=== PATIENT | female | born 1980 | race Caucasian/White ===

== ENCOUNTER 2020-04-21 19:05 | Emergency (ER) | payer BC, SELFPAY ==
[2020-04-21 19:24] VITALS: BP 141/84; PULSE 101; RESP 16; TEMP 36.6; O2SAT 97; BMI 37.2
--- NOTE | 2020-04-21 19:53 | HMH.EDUTC ---
[facility] [place] Disposition Clinical Impression: COVID-19 virus test result unknown Disposition: Home, Self-Care Condition on Discharge: Good Instructions: Preventing the Spread of Coronavirus Discharge Instructions Additional Instructions: self quarantine till test result are resulted Referrals: Arden Arnold [Primary Care Provider] - Time of Disposition: 19:58 Medical Decision Making - Yann Inquiry Pt receiving controlled substance: No Vital Signs: 04/21/20 19:24 Temperature 98 F Temperature Source Oral Pulse Rate [Radial] 101 H Respiratory Rate 16 Blood Pressure [Right Arm] 141/84 H Blood Pressure Mean [Right Arm] 103 Blood Pressure Source [Right Arm] Automatic Cuff Blood Pressure Position [Right Arm] Sitting 02 Sat by Pulse Oximetry 97 Oxygen Delivery Method Room Air Orders (Tests/Meds): ORDERS Category Date Time Status Coronavirus 19 Swab (OUTPT) Routine Lab 04/21/20 19:[address] [facility] [place] HPI - General Chief complaint: Urgent Treatment Center Stated complaint: Covid test Time Seen by Provider: 04/21/20 19:53 Mode of Arrival: Ambulatory Source of Information: Patient Limitations: No Limitations Description of Symptoms (Recalled from Triage Doc. by RN): States she was positive for COVID 3 weeks- daughter also positive on THU. HEENT Symptoms (Recalled from RN notes): No Resp Symptoms (Recalled from RN notes): Yes Skin Symptoms (Recalled from RN notes): No MS Symptoms (Recalled from RN notes): No Functional Status (Recalled from RN notes): wnl - History of Present Illness Provider Complaint: 39 yr old female present for covid testing. pt states she has had 2 positive test result and she has symptoms but they have improved. - Related Data Allergies Allergy/AdvReac Type Severity Reaction Status Date / Time CODEINE Allergy Mild I-RASH Uncoded 09/01/17 14:40 From PERCOCET Allergy Mild I-RASH Uncoded 09/01/17 14:40 From TORADOL Allergy Mild STOMACH Uncoded 09/01/17 14:40 CRAMPS LATEX Allergy Mild Uncoded 09/01/17 14:40 Sulfonamide Allergy Unknown Uncoded 09/01/17 14:40 - Worker's Comp Is this a Worker's Comp case?: No [facility] History - Hepatitis A Screen Drug use history?: No High risk sexual behaviors?: No History of sexually transmitted infection?: No Currently employed?: No Childcare worker?: No Do you have indoor plumbing?: Yes Do you have electricity?: Yes Attestation statement:: This patient has been screened for Hepatitis A risk factors. I have reviewed the patient's past medical history: Yes - Social History Alcohol Intake: never Occupational Status: employed ROS Obtained: Yes Systems reviewed as appropriate & no additional complaints - Constitutional Constitutional: Reports system reviewed and no additional complaints, except as docu, Denies chills, Denies fever(s) - Eyes Eyes: Reports system reviewed and no additional complaints, except as docu, Denies change in vision - ENT Ears, Nose, Mouth, and Throat: Reports system reviewed and no additional complaints, except as docu, Reports nasal congestion, Reports sinus pressure - Cardiovascular Cardiovascular: Reports system reviewed and no additional complaints, except as docu, Denies dyspnea - Respiratory Respiratory: Yes system reviewed and no additional complaints, except as docu, No wheezing - Gastrointestinal Gastrointestingal: Reports: system reviewed and no additional complaints, except as docu. Denies: nausea, vomiting - Genitourinary Female Genitourinary: Reports system reviewed and no additional complaints, except as docu - Musculoskeletal Musculoskeletal: Reports system reviewed and no additional complaints, except as docu, Denies decreased muscle mass - Integumentary/Breasts Skin/Breast: Reports system reviewed and no additional complaints, except as docu, Denies rash - Neurologic Neurologic: Reports system reviewed and no additional complaints, except as docu, Denies dizziness - Endoc
[2020-04-21 20:22] VITALS: BP 141/84; PULSE 101; RESP 16; TEMP 36.6; O2SAT 97
--- NOTE | 2020-04-21 22:57 | PC.NURSE ---
COVID TEST RESULTS POSITIVE, RESULT CALLED TO PATIENT.
--- NOTE | 2020-04-21 22:59 | PC.NURSE ---
LAUREL VILCHIS AWARE OF TEST RESULTS.
== END 2020-04-21 20:23 | disposition home or self-care (01) ==
PROVIDERS: Emergency Provider Nurse Practitioner Family; PCP Family Medicine
DX: U07.1 COVID-19 (principal); Z91.040 Latex allergy status; Z88.5 Allergy status to narcotic agent; Z88.2 Allergy status to sulfonamides
CPT/HCPCS: 99201; U0003